=== PATIENT | male | born 1990 | race African-American/Black ===

== ENCOUNTER 2017-02-13 06:45 | Emergency (ER) | payer SELFPAY ==
[~2017-02-13] VITALS: Ht 167.6 cm; Wt 68.0 kg
[2017-02-13 18:54] VITALS: BP 134/77
--- NOTE | 2017-02-13 19:47 | NUR ---
PT IS MEDICALLY CLEARED FOR VOLUNTARY PSYCH ADMISSION. SENT TO [facility] IN STABLE CONDITION.
== END 2017-02-13 19:48 ==
LOC: ER 18:45
DX: Z04.6 Encounter for general psychiatric examination, requested by authority (principal); F32.9 Major depressive disorder, single episode, unspecified; I10 Essential (primary) hypertension; Z60.2 Problems related to living alone
CPT/HCPCS: 99283; A4606; Z7610